=== PATIENT | male | born 1955 | race Caucasian/White ===

== ENCOUNTER 2017-06-06 13:17 | Emergency (ER) | payer MEDICARE, MEDICAID ==
[2017-06-06] MEDS ORDERED: Ketorolac Tromethamine 30 MG/ML VIAL ONE (14:21)
--- NOTE | 2017-06-06 16:19 | RAD ---
RIGHT SHOULDER THREE VIEWS: History: 82-year-old male with history of right shoulder pain following a fall. FINDINGS: There is a comminuted fracture involving the right humeral neck including displaced comminuted greate r tuberosity fracture with some foreshortening and malalignment without evidence for dislocation. IMPRESSION: Markedly comminuted proximal humeral neck fracture with some foreshortening. No dislocation. POS: [facility]
--- NOTE | 2017-06-06 16:20 | RAD ---
RIGHT HUMERUS 2 VIEWS: HISTORY: A 62-year-old male with right shoulder pain following an injury for a fall. FINDINGS: Again noted is a comminuted proximal humeral and humeral neck fracture with foreshortening. The faisal aura of the humerus appears intact. IMPRESSION: Again noted is a comminuted humeral neck fracture with considerable foreshortening. The distal humer us appears intact. POS: [facility]
--- NOTE | 2017-06-06 16:21 | RAD ---
RIGHT RIBS 2 VIEWS AND CHEST 1 VIEW: HISTORY: A 62-year-old male with a history of a right rib injury following a fall. FINDINGS: There is some deformity of the right 7th, 8th, 9th, and 10th ribs which has the appearance of being o ld healed fractures. No pneumothorax or pleural effusion. Right hemidiaphragm elevation with some b lunting of the right costophrenic angle. The heart size is normal. The left lung is clear. IMPRESSION: Healed right rib fractures. Right hemidiaphragm elevation with some blunting of the right costophren ic angle. No evidence for acute rib fracture, pneumothorax, or pleural effusion. POS: [facility]
== END 2017-06-06 17:29 | disposition home or self-care (01) ==
LOC: ERS 13:17
DX: S42.211A Unspecified displaced fracture of surgical neck of right humerus, initial encounter for closed fracture (principal); F32.9 Major depressive disorder, single episode, unspecified; I10 Essential (primary) hypertension; E11.9 Type 2 diabetes mellitus without complications; W18.30XA Fall on same level, unspecified, initial encounter
CPT/HCPCS: 96374; 96375; J1885; J2270

== ENCOUNTER 2017-07-15 00:51 | Inpatient (IN) | payer MEDICARE, MEDICAID ==
[2017-07-15] MEDS ORDERED: Adacel (T-DAP) 0.5 ML VIAL ONE (01:50)
[2017-07-15] MEDS ORDERED: Dextrose 5% in Water 1,000 ML IV PRN (03:27)
[2017-07-15] MEDS ORDERED: Dextrose 50% Abboject 50 ML SYRINGE SLOW IVP PRN (03:27)
[2017-07-15] MEDS ORDERED: HumaLOG 300 UNITS/3 ML VIAL SC PRN (03:46)
[2017-07-15] MEDS ORDERED: Ondansetron HCl/PF 4 MG/2 ML Vial IVP PRN (03:46)
[2017-07-15] MEDS ORDERED: Ondansetron ODT 4 MG TAB PO PRN (03:46)
[2017-07-15] MEDS ORDERED: hydrALAZINE 20 MG/ML VIAL SLOW IVP PRN (03:54)
[2017-07-15] MEDS ORDERED: Acetaminophen 500 MG TAB PO PRN (03:54)
[2017-07-15] MEDS ORDERED: Sodium Chloride 0.9% 1,000 ML IV SCH (04:00)
[2017-07-15 04:16] LABS: #Eosinphils 0.2 thou/uL (0.0-0.7); #Lymphocytes 1.3 thou/uL (1.20-3.40); #Monocytes 1.3 thou/uL (0.11-0.59); #Neutrophils 12.9 thou/uL (1.40-6.50); %Basophils 0.2 % (0.0-1.0); %Eosinophils 1.3 % (0.0-10.0); %Lymphocytes 8.2 % (21.0-51.0); %Monocytes 8.3 % (0.0-10.0); %Neutrophils 82.1 % (42.0-75.0); Hemoglobin 11.4 g/dL (14.0-18.0); Mean Corpuscular HGB CONC 33.7 g/dL (32.0-36.0); Mean Corpuscular Hemoglobin 30.2 pg (27.0-31.0); Mean Corpuscular Volume 89.6 fl (80.0-94.0); Platelet Count 348 thou/uL (130-400); RBC Distribution Width 13.7 % (11.5-14.5); Red Blood Cell (RBC) Count 3.77 mill/uL (4.70-6.10); White Blood Cell (WBC) Count 15.7 thou/uL (4.8-10.8)
[2017-07-15 04:37] LABS: Anion Gap 10 mmol/L (10-20); BUN (Urea Nitrogen) 24 mg/dL (8.4-25.7); Calc. Creatinine Clearance 0 mL/min (70-130); Carbon Dioxide 25 mmol/L (23-31); Chloride 99 mmol/L (98-107); Estimated GFR-MDRD 63; Glucose 144 mg/dL (80-115); Magnesium 1.8 mg/dL (1.6-2.6); Potassium 4.4 mmol/L (3.5-5.1); Sodium 130 mmol/L (136-145)
--- NOTE | 2017-07-15 05:05 | HP ---
DATE OF ADMISSION: 07/15/2017 ATTENDING PHYSICIAN: Dr. Hendrickson. TRAUMA ACTIVATION: Not applicable. HISTORY OF PRESENT ILLNESS: Chuy Norton is a 62-year-old male with a past medical history of maria l ia, schizophrenia, diabetes, who resides at [facility]. Patient presented to [facility] post fall via EMS. Per patient, he was sitting on the toilet and his leg fell asleep, causi ng him to slip and fall backwards when he attempted to stand. He does admit to striking his head. H e denies loss of consciousness. The patient is a poor historian, who is unable to give me details on his past medical history or home medications. He was evaluated in the emergency room and found to h ave a small subarachnoid hemorrhage. GCS has been 15. Neurosurgery was notified and Trauma Services was asked to admit. Upon my evaluation, the patient has a chief complaint of right arm pain. Denie s headache. Of note, the patient had a recent emergency room visit on 06/06/2017, where he was diagn osed with a proximal humerus fracture that was treated conservatively/nonoperatively. This fall was also reported as mechanical fall. PAST MEDICAL HISTORY: ALLERGIES: None. HOME MEDICATIONS: Include Tylenol 650 mg q.4 h. p.r.n., atorvastatin 10 mg p.o. daily, vitamin D3 of 400 units p.o. daily, vitamin B12 q.4 months, Byetta 10 mcg b.i.d. before meals, hydrochlorothiazide 25 mg p.o. daily, Lantus 30 units a.m., 22 units at bedtime, NovoLog a.c. and at bedtime sliding sca le, lisinopril 40 mg p.o. daily, naproxen b.i.d., Zyprexa 20 mg at bedtime, pioglitazone 30 mg p.o. d aily, Zoloft 200 mg p.o. daily, spironolactone 25 mg p.o. daily, trazodone 75 mg p.o. at bedtime, mariama apamil 360 mg p.o. daily. PAST MEDICAL HISTORY: Include type 2 diabetes, BPH, OCD, history of hyponatremia, history of hyperca lcemia, dyshidrosis, mental retardation, dementia, sleep apnea, neuropathy, hypertension, anxiety, sc hizophrenia, hyperparathyroidism, anemia. PAST SURGICAL HISTORY: The patient denies. SOCIAL HISTORY: Patient is a resident of [facility]. Denies alcohol, tobacco, or illici t drug use. FAMILY HISTORY: Noncontributory. REVIEW OF SYSTEMS: Negative except as indicated in the HPI. PHYSICAL EXAMINATION: VITAL SIGNS: Most recent vital signs, blood pressure 160/82, pulse 86, respirations 18, O2 sat 95% o n 2 liters nasal cannula, temperature 98.5. GENERAL: Well-developed elderly male, in no acute distress, resting in bed. HEAD: Normocephalic, atraumatic. EYES: Pupils were PERRL. Extraocular movements are intact. NECK: Supple. Trachea is midline. PULMONARY: Normal work of breathing, symmetric rise. LUNGS: Clear to auscultation bilaterally. CARDIOVASCULAR: Regular rate and rhythm. No obvious murmurs, rubs, or gallops. GASTROINTESTINAL: Rotund, soft, nontender, nondistended. Bowel sounds positive. BACK: There is an abrasion in the right upper back, 2 x 2 cm, right upper extremity deformity, which is known from his previous admission. He is neurovascularly intact distal to the side of that injur y. Left upper extremity is within normal limits. Bilateral lower extremities within normal limits. Pulses 2+ bilaterally. NEUROLOGIC: GCS is 15. No focal deficit is noted. He does, however, intermittently answer question s inappropriately or ask repetitive questions. LABORATORY FINDINGS: Pending. RADIOGRAPHIC FINDINGS: CT of the head with official read is pending, but shows a small left parietal subarachnoid hemorrhage. CT of C-spine pending. ASSESSMENT: 1. Status post fall. 2. Subarachnoid hemorrhage. 3. History of diabetes. 4. Recent mechanical fall with right humerus fracture. 5. History of dementia. 6. Hypertension. 7. History of mental retardation and schizophrenia. PLAN: Admit to Trauma Services. Patient has been discussed with Neurosurgery who has reviewed his C T scan. Plan is to admit to [facility] with frequent neuro checks. Repeat CT head in a.m. The patient sh ould be n.p.o. until cleared by Neurosurgery. PT and OT once cleared by Neurosurgery for activity. DVT and gastritis prophylaxis is appropriate. Plan for admission was discussed with the patient. Kilo mcknight questions were answered at the time of this dictation. Trauma attending has been notified of admis tricia. We will follow up, pending imaging and laboratory studies and additional orders to follow once those have resulted.
[2017-07-15 05:17] VITALS: BMI 37.3
--- NOTE | 2017-07-15 07:16 | PRG ---
DATE OF SERVICE: 07/15/2017 I personally interviewed and examined the patient, reviewed records and imaging and agree with documentation of Dom Mtz PA-C, dated 07/15/2017. Briefly, Chuy Norton is a 62-year-old resident of [facility] with cognitive impairment who came to our emergency department overnight and was admitted after a fall in the bathroom. He does not remember the event, but knows that his ribs were hurting when he came to the realization that he was down. In our Emergency Department, CT examination of the brain revealed an extremely small extraaxial collection of blood over the frontoparietal area on the left side on 2 slices. There is no mass effect. There is no midline shift. This does not spread out anteriorly and posteriorly. It is rather focal and it measures may be 5 mm in the AP direction in 2-3 mm thick. He has been watched overnight closely and I am seeing him in his room this morning. The recorded vital signs are stable. When I walked in the room, he is awake, answers to his name. His cranial nerves are grossly intact. His hearing may be diminished bilaterally, but it is symmetric. Motor examination does not show any focal deficits. There is no neglect. I reviewed CT imaging myself and the neck CT is pending. A CT cervical spine is negative. Mr. Norton has a nonsurgical tiny extraaxial hemorrhage over the frontal parietal region of the left hemisphere not causing any mass effect. It is too small to know whether this is a tiny area of epidural or subdural or even some subarachnoid over a sulcus. It is too tiny to warrant neurosurgical intervention. If the follow up scan is stable, then Mr. Norton can be discharged back to [facility] when he is safe for his activities of daily living. A follow up scan can be ordered in a few weeks and I can call him with the results. addendum: I have reviewed the new CT and there is no change. This patient will be scanned as an outpatient in 2-3 weeks but will not need neurosurgical intervention. Please call us back with questions, should they arise prior to discharge back to his care facility. [facility]
[2017-07-15 07:34] LABS: Bilirubin Negative (Negative); Blood, Urine Negative (Negative); Clarity CLEAR (Clear); Glucose, Urine (Dipstick) Negative (Negative); Leukocyte Negative (Negative); Nitrite Negative (Negative); Protein, Urine (Dipstick) Negative (Neg-Trace); Specific Gravity, Urine 1.014 (1.002-1.036); Urobilinogen 0.2 mg/dL (0.2-1.0)
--- NOTE | 2017-07-15 07:48 | CON ---
DATE OF CONSULTATION: 07/15/2017 HISTORY OF PRESENT ILLNESS: Mr. Norton is a 62-year-old male who lives at [facility]. He has a hist ory of dementia, schizophrenia, diabetes. He [facility] status post fall in his bathroom as he attempted to stand. He struck his head on the toilet and d enies any loss of consciousness. After a CT of the brain was completed in the [facility] he was f ound to have a small left-sided traumatic subarachnoid hemorrhage. The patient has good strength in upper and lower extremities and there are no focal motor or sensory deficits. His cranial nerves are intact and he follows my commands well with a GCS of 15. Neurosurgery was consulted on the small t raumatic subarachnoid hemorrhage in the left parietal region. ALLERGIES: None. HOME MEDICATIONS: 1. Tylenol 650. 2. Atorvastatin 10 mg p.o. daily. 3. Vitamin E 400 units p.o. 4. Vitamin B12. 5. Byetta 10 mcg b.i.d. 6. Hydrochlorothiazide 25 mg p.o. daily. 7. Lantus 30 mg q.a.m., 22 units at bedtime. 8. NovoLog a.c. and at bedtime sliding scale. 9. Lisinopril 40 mg p.o. daily. 10. Naproxen b.i.d. 11. Zyprexa 20 mg at bedtime. 12. Pioglitazone 30 mg p.o. daily. 13. Zoloft 200 mg p.o. daily. 14. Spironolactone 25 mg p.o. daily. 15. Trazodone 75 mg p.o. at bedtime. 16. Verapamil 360 mg p.o. daily. PAST MEDICAL HISTORY: Type 2 diabetes, BPH, OCD, hyponatremia, hypercalcemia, dyshydrosis, mental re tardation, dementia, sleep apnea and neuropathy, hypertension, anxiety, schizophrenia, hyperparathyro idism, and anemia. PAST SURGICAL HISTORY: The patient denies. SOCIAL HISTORY: The patient is a resident [facility]. Denies any alcohol, tobacco or i llicit drug use. FAMILY HISTORY: Noncontributory. PHYSICAL EXAMINATION: VITAL SIGNS: Vital signs have been reviewed. He is slightly hypertensive with blood pressure 157/78 . He is afebrile, 98 degrees, pulse is 88, respirations 20, O2 sat is 98% on 2 liters nasal cannula. HEENT: Normocephalic, atraumatic. Hearing intact. Moist mucous membranes. Trachea is midline. EYES: Pupils are equal and reactive to light. Extraocular muscles are intact. Sclerae is white, no nicteric. CARDIOVASCULAR: The patient has regular rate and rhythm, normal S1, S2 heart sounds. No distal cyan osis or clubbing noted. EXTREMITIES: The patient has no focal or motor sensory deficits in the upper or lower extremities bi laterally and has 5/5 strength. NEUROLOGIC: Cranial nerves II-XII are grossly intact. Speech is fluent. He answered my questions a ppropriately. SKIN: Normal to inspection, age appropriate turgor. IMPRESSION: Mr. Norton is a 62-year-old male who presents status post fall and acute small traumat ic subarachnoid hemorrhage in the left parietal region. PLAN: There is no neurosurgical emergency. We will keep his head of bed at 30 degrees. We will kiara p him n.p.o. until we get a repeat scan in the morning. If that is stable, we can start him on a reg ular diet. If there are any further questions, please feel free to contact Neurosurgery.
--- NOTE | 2017-07-15 08:58 | CT ---
PRELIMINARY REPORT/[facility]/EMERGENCY AFTER HOURS PROCEDURE: Addendum created by Kriss Foss MD on 07/15/2017 2:34 AM Central Time ([place] & [place]) THIS REPORT CONTAINS FINDINGS THAT MAY BE CRITICAL TO PATIENT CARE. The findings were verbally commun icated via telephone conference with Anahi Sheridan at 2:34 AM CDT on 07/15/2017. The findings were a cknowledged and understood. Initial Report created on 07/15/2017 2:31 AM Central Time ([place] & [place]) EXAM: CT Head Without Intravenous Contrast EXAM DATE/TIME: 07/15/2017 1:38 AM CLINICAL HISTORY: 62 years old, male; Injury or trauma; Fall; Initial encounter; Concussion / head injury; Consciousnes s not specified; Injury date: 07/15/2017; Patient HX: Ricardo Taylor presents to ed post fall at ca, pt reports that he was on the commode when his foot fell asleep and he slid foreword off the toilet and hit his upper back against the toilet. Denies any neck or back pain. Vss, has dnr on record and HX of chroni c back pain TECHNIQUE: Axial computed tomography images of the head/brain without intravenous contrast. All CT scans at this facility use one or more dose reduction techniques, viz.: automated exposure control; ma/Kv adjustme nt per patient size (including targeted exams where dose is matched to indication; i.e. head); or ite rative reconstruction technique. COMPARISON: No relevant prior studies available. FINDINGS: Artifacts: Motion artifact limits this study. Brain: Very small 5 mm area hyperdensity along the left parietal extra-axial space. Mild prominence o f the cerebral sulci and ventricles. Cerebellum atrophic; otherwise, posterior fossa structures withi n normal limits. Chronic-appearing, subcentimeter lacunar infarctions left basal ganglia. No hemorrhage . Ventricles: See above. Bones/joints: Unremarkable. No acute fracture. Soft tissues: Mild left parietal scalp swelling-hematoma. Sinuses: Unremarkable as visualized. No acute sinusitis. Mastoid air cells: Unremarkable as visualized. No mastoid effusion. IMPRESSION: 1. Motion artifact limits this study. 2. Small 5 mm left parietal suspected subarachnoid hemorrhage. 3. Mild left parietal scalp swelling-hematoma. 4. Mild cerebral atrophy. Thank you for allowing us to participate in the care of your patient. Dictated and Authenticated by: Kriss Foss MD 07/15/2017 2:31 AM Central Time ([place] & [place]) FINAL REPORT CT BRAIN: Date: 07/15/17 Preliminary exam was performed by [facility]. The patient has a history of fall, slid off of t oilet and hit upper back against toilet. Noncontrast enhanced CT images of the brain obtained. Comparison made to previous exam from 08/24/09. CT images of the brain demonstrate an approximately 5-6 mm area of minimal hemorrhage in the left lat eral subarachnoid space. This appears to be acute and was not seen on the previous comparison exam. F ollow-up CT images recommended. The rest of the brain is unremarkable. No evidence of calvarial fract ure seen. IMPRESSION: Left lateral frontal small area of subarachnoid hemorrhage. No evidence of calvarial lesion seen. 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 This appears to have developed since the previous CT; however, it appears to be old. POS: [facility]
--- NOTE | 2017-07-15 09:06 | CT ---
PRELIMINARY REPORT/[facility]/EMERGENCY AFTER HOURS PROCEDURE: EXAM: CT Cervical Spine Without Intravenous Contrast EXAM DATE/TIME: Exam ordered 07/15/2017 4:21 AM CLINICAL HISTORY: 62 years old, male; Injury or trauma; Fall; Initial encounter; Concussion /head injury; Injury date: 07/15/2017 TECHNIQUE: Axial computed tomography images of the cervical spine without intravenous contrast. All CT scans at this facility use one or more dose reduction techniques, viz.: automated exposure control; ma/kV adju stment per patient size (including targeted exams where dose is matched to indication; i.e. head); or iterative reconstruction technique. COMPARISON: No relevant prior studies available. FINDINGS: Vertebrae: No acute cervical spine fracture is identified. Discs/spinal canal/neural foramina: The cervical spine demonstrates moderate degenerative changes at multiple levels. No spinal canal stenosis. Soft tissues: Normal. Thyroid: The thyroid gland is normal. Lung apices: There is biapical atelectasis. IMPRESSION: 1. No acute cervical spine fracture is identified. 2. Moderate cervical spine degenerative changes at multiple levels. Thank you for allowing us to participate in the care of your patient. Dictated and Authenticated by: Douglas Izquierdo MD 07/15/2017 6:17 AM Central Time ([place] & [place]) FINAL REPORT CT CERVICAL SPINE WITH CORONAL AND SAGITTAL REFORMATIONS: Date: 07/15/17 FINDINGS/IMPRESSION: I agree with the preliminary report given by Dr. Douglas Izquierdo of [facility]. POS: [facility]
--- NOTE | 2017-07-15 09:47 | RAD ---
RIGHT SHOULDER 3 VIEWS: Date: 07/15/17 HISTORY: 62-year-old male with history of right shoulder pain, status post fall. COMPARISON: 06/06/17. FINDINGS: Again noted is a very markedly comminuted, displaced humeral head and neck fracture, with what is pro bably some minimal bony callus formation. The displaced fragments are much more displaced and there i s much more severe foreshortening than on the prior study. Given the severe foreshortening and extens jose fragmentation, it is more difficult to evaluate for the possibility of minimal dislocation/sublux ation. If that is a clinical concern, then a follow-up CT scan should be considered to rule out that possibility. IMPRESSION: Very markedly displaced, comminuted humeral head and proximal humeral neck fractures with considerabl y worse displacement, malalignment, and foreshortening when compared to the prior study. There does a ppear to be some minimal bony callus. The possibility of some associated subluxation/dislocation cooper ot be totally excluded on this study. If that is a concern, would suggest a follow-up CT scan for fur ther assessment. POS: [facility]
--- NOTE | 2017-07-15 09:51 | RAD ---
PORTABLE CHEST 1 VIEW: Date: 07/15/17 Time: 0840 hours HISTORY: Fall, left rib pain. FINDINGS/IMPRESSION: Comparison made with exam of 08/24/09. There is continued elevation of the right hemidiaphragm. Bibasilar atelectatic changes are present. T he heart size is normal. There is mild prominence of the pulmonary vascularity. No lobar consolidatio n, pneumothoraces, or large effusions are seen. POS: [facility]
--- NOTE | 2017-07-15 10:20 | CT ---
CT BRAIN: HISTORY: Patient who fell with a small area of extraaxial hemorrhage. COMPARISON: Comparison is made to a previous CT from earlier in the day. FINDINGS: CT images of the brain demonstrate again a small area of subcentimeter hemorrhage along the lateral a spect of the left frontal lobe extraaxially. This is stable and unchanged. No evidence of increased hemorrhage seen. Old area of stroke is seen in the left basal ganglion. No other significant guzman e is seen. No evidence of calvarial fracture is seen. IMPRESSION: Stable CT appearance of the brain. The small area of extraaxial hemorrhage is unchanged. POS: [facility]
[2017-07-15 10:58] VITALS: TEMP 98.6
[2017-07-15 13:46] VITALS: BP 142/71
--- NOTE | 2017-07-15 14:25 | DIS ---
DATE OF ADMISSION: 07/15/2017 DATE OF DISCHARGE: 07/15/2017 ADMITTING PHYSICIAN: Dr. Arian Hendrickson DISCHARGING PHYSICIAN: Dr. Wan Mejia CONSULTING PHYSICIAN: Alvarez Strange, Neurosurgery CHIEF COMPLAINT: Ground level fall. HOSPITAL DIAGNOSIS: Subarachnoid hemorrhage. DISCHARGE CONDITION: Good. DISPOSITION [facility], which was the patient's previous residence. PROCEDURES: None. FOLLOWUP: Dr. Pino with repeat CT scan. BRIEF HISTORY OF HOSPITALIZATION: Mr. Norton is a 62-year-old male who had a ground level fall nereyda ier this morning. He apparently was in his usual state of health at his residence at [facility]. He apparently attempted to get up from the toilet when he reports his leg fell asleep and w hen he attempted to stand he slipped and fell backwards. He struck his head at that time. He was tr ansported to [facility] where a small subarachnoid hemorrhage was identified. H e had no neurological deficits. His GCS remained 15. Follow up CT scan was stable. He was seen by Dr. Pino, Neurosurgery. There was no neurosurgical intervention recommended. The following mor jonathon, he was seen. GCS remained 15. He was able to ambulate without difficulty. He was started on regular diet which he tolerated well. He will be discharged to [facility] and follow up with Dr. Pino as listed above. He is to remain off of any aspirin containing medications or blo od thinners until cleared by Dr. Pino. He did not have any prior home medications of aspirin or blood thinners. He may resume all previous orders at the shelter. The patient was seen and examined with Dr. Mejia on the day of discharge. Dr. Mejia agrees with the assessment and plan for discharge.
== END 2017-07-15 13:20 | DRG 87 ==
LOC: ERS 00:51 → IMCU/EMU 03:46
PROVIDERS: ADMIT Surgery; ATTEND Surgery
DX: S06.6X0A Traumatic subarachnoid hemorrhage without loss of consciousness, initial encounter (principal); F03.90 Unspecified dementia, unspecified severity, without behavioral disturbance, psychotic disturbance, mood disturbance, and anxiety; F20.9 Schizophrenia, unspecified; E11.9 Type 2 diabetes mellitus without complications; E21.3 Hyperparathyroidism, unspecified; D64.9 Anemia, unspecified; W18.12XA Fall from or off toilet with subsequent striking against object, initial encounter; Y92.121 Bathroom in nursing home as the place of occurrence of the external cause; Z79.4 Long term (current) use of insulin; N40.0 Benign prostatic hyperplasia without lower urinary tract symptoms; F42.9 Obsessive-compulsive disorder, unspecified; F79 Unspecified intellectual disabilities; G47.30 Sleep apnea, unspecified; I10 Essential (primary) hypertension; F41.9 Anxiety disorder, unspecified; S20.411A Abrasion of right back wall of thorax, initial encounter; Z91.81 History of falling; S42.301D Unspecified fracture of shaft of humerus, right arm, subsequent encounter for fracture with routine healing; Z23 Encounter for immunization
CPT/HCPCS: 36416; 70450; 71045; 72125; 80048; 81003; 83735; 84100; 85025; 90471; 90715; G0390; G8978-GP-CJ; G8979-GP-CI

== ENCOUNTER 2017-08-22 12:56 | Outpatient (CLI) | payer MEDICARE, MEDICAID ==
--- NOTE | 2017-08-22 15:07 | CT ---
CT BRAIN WITHOUT CONTRAST: Date: 08/22/17 HISTORY: S06.6X0A, unspecified cranial injury. COMPARISON: CT brain dated 07/15/17. FINDINGS: No acute territorial infarct or hemorrhage. No midline shift or mass effect. Ventricular size and ext ra-axial CSF space is similar. Mastoids and paranasal sinuses are clear. There is a small extra-axial area of focal increased density which may reflect a partially calcified meningioma. IMPRESSION: 1. No acute intracranial abnormality. 2. Likely a partially calcified meningioma versus less likely hemorrhage given no change at all from the comparison examination and its somewhat rounded nature. POS: [facility]
== END 2017-08-22 12:57 | disposition home or self-care (01) ==
LOC: TBSIIMAG 12:56
PROVIDERS: ATTEND Neurological Surgery
DX: S06.6X0A Traumatic subarachnoid hemorrhage without loss of consciousness, initial encounter (principal)
CPT/HCPCS: 70450